=== PATIENT | female | born 1990 | race African-American/Black ===

== ENCOUNTER 2017-04-25 21:39 | Emergency (ER) | payer OTHER ==
[~2017-04-25] VITALS: Ht 172.7 cm; Wt 87.5 kg
[2017-04-25] MEDS ORDERED: NAPROSYN500 M1 ORAL (22:44)
--- NOTE | 2017-04-25 22:45 | Emergency Room Report ---
History of Present Illness General Chief Complaint: Lower Extremity Injury Source: Patient Present Illness HPI Is a 26-year-old female with no past medical history. She presents with chief complaint of bilateral knee pain. Worse when she walks or when she tried to get up. She felt pressure in that area. No trauma. No pain with sitting. She had x-ray done at [facility] and told everything was normal. Told that she may need an MRI Allergies: Coded Allergies: SULFA (SULFONAMIDE ANTIBIOTICS) (Verified Allergy, Unknown, 04/25/17) Patient History Past Medical History: see triage record, old chart reviewed Past Surgical History: none Pertinent Family History: none Social History: Denies: smoking Last Menstrual Period: 04/13/17 Now: No Immunizations: other Reviewed Nursing Documentation: PMH: Agreed, PSxH: Agreed Nursing Documentation-PMH Past Medical History: No Stated History Review of Systems Eye: Denies: eye pain, blurred vision ENT: Denies: ear pain, nose congestion, throat swelling Respiratory: Denies: cough, shortness of breath Cardiovascular: Denies: chest pain, palpitations Gastrointestinal: Denies: abdominal pain, diarrhea, nausea, vomiting Musculoskeletal: Reports: joint pain, Denies: back pain Skin: Denies: rash Neurological: Denies: headache, numbness Endocrine: Denies: increased thirst, increased urine Hematologic/Lymphatic: Denies: easy bruising All Other Systems: negative except mentioned in HPI Physical Exam Vital Signs Date Time Temp Pulse Resp B/P (MAP) Pulse Ox O2 Delivery O2 Flow Rate FiO2 04/25/17 22:07 98.1 82 16 121/65 99 Room Air vitals normal Sp02 EP Interpretation: reviewed, normal General Appearance: well appearing, no apparent distress, alert Head: normocephalic, atraumatic Eyes: bilateral eye PERRL, bilateral eye EOMI ENT: hearing grossly normal, normal pharynx Neck: full range of motion, supple, no meningismus Respiratory: chest non-tender, lungs clear, normal breath sounds Cardiovascular #1: regular rate, rhythm, no murmur Gastrointestinal: normal bowel sounds, non tender, no mass, no organomegaly, no bruit, non-distended Musculoskeletal: back normal, gait/station normal, normal range of motion Psychiatric: mood/affect normal Skin: warm/dry Medical Decision Making Diagnostic Impression: Primary Impression: Arthralgia of both knees ER Course Patient presents with bilateral knee pain. No trauma. No effusion on exam. No other of septic joint. I suspect this may be strained from her weight and maybe the carrying angle of her hip. Last Vital Signs Date Time Temp Pulse Resp B/P (MAP) Pulse Ox O2 Delivery O2 Flow Rate FiO2 04/25/17 22:07 98.1 82 16 121/65 99 Room Air Status: unchanged Disposition: HOME, SELF-CARE Condition: Stable Scripts Naproxen* (NAPROSYN*) 500 Mg Tablet 500 MG ORAL TWICE A DAY, #60 TAB Prov: MAURICIO PABON M.D. 04/25/17 Referrals: SOFI LOPEZ,REFERRING (PCP) Additional Instructions: followup with your DrRandolph in 7 days. You may need physical therapy. Return if worse. MAURICIO PABON M.D. Apr 25, 2017 22:45
[2017-04-25 22:50] VITALS: BP 121/65
== END 2017-04-25 22:50 | disposition home or self-care (01) ==
LOC: EMR 22:15
DX: M25.562 Pain in left knee (principal); M25.561 Pain in right knee; Z88.2 Allergy status to sulfonamides
CPT/HCPCS: 99283

== ENCOUNTER 2018-10-15 22:33 | Emergency (ER) | payer MEDICAID, OTHER ==
[~2018-10-15] VITALS: Ht 172.7 cm; Wt 95.3 kg
[~2018-10-15 22:33] MED LIST: NAPROSYN500 M1 ORAL
[2018-10-15] MEDS ORDERED: NKM (22:43)
[2018-10-15] MEDS ORDERED: NAPROXEN500 M2 ORAL (22:59)
[2018-10-15 23:00] VITALS: BP 121/84
--- NOTE | 2018-10-15 23:00 | Emergency Room Report ---
History of Present Illness General Chief Complaint: Pain Source: Patient Present Illness HPI HPI: 27-year-old otherwise healthy female presents for evaluation of her right upper arm pain. Symptoms been present for approximately 3 weeks. She notes it started shortly after lifting a heavy table at work. Pain is localized over the right bicep and does not radiate. He denies any pain in the shoulder or elbow joint or in the forearm, wrist or hand. Denies any paresthesias or loss of sensation. Cannot recall a specific injury. Has not taken any medication prior to arrival or since onset of symptoms. She has full use of the right upper extremity aside from mild limitation on elbow flexion secondary to discomfort. She is otherwise in her usual state of health and denies any recent illness, fever, chills, sore throat, chest pain, difficulty breathing, abdominal pain, vomiting or diarrhea, rash, dysuria at this time PMH: Denies PSH: Denies Allergies: Sulfa allergy Social Hx: Social alcohol use, denies drug or tobacco use Allergies: Coded Allergies: SULFA (SULFONAMIDE ANTIBIOTICS) (Verified Allergy, Unknown, 04/25/17) Patient History Last Menstrual Period: september Now: No Review of Systems All Other Systems: negative except mentioned in HPI Physical Exam Vital Signs Date Time Temp Pulse Resp B/P (MAP) Pulse Ox O2 Delivery O2 Flow Rate FiO2 10/15/18 22:39 98.4 80 16 121/84 (96) 98 Room Air General: Awake and alert, no acute distress HEENT: NC/AT. EOMI. Neck: Supple, trachea midline Chest Wall: No tenderness, no deformity Cardiovascular: RRR. S1 and S2 normal. No murmur appreciated Resp: Normal work of breathing. Skin: Intact. No abrasions, laceration or rash over the exposed skin MSK: Normal tone and bulk. Moving all extremities. No obvious deformity. Tenderness to palpation over the anterior and medial aspect of the right biceps. There is no significant tenderness or deformity in the shoulder, elbow , wrist or hand. There is full range of motion in all digits of the hand, or flexion extension and deviation of the wrist. Neuro: Awake and alert. Mentating appropriately. Sensation is intact over the dermatomes of the upper extremities bilaterally. Back/Spine: No midline tenderness in the cervical, thoracic or lumbosacral spine. Medical Decision Making Diagnostic Impression: Primary Impression: Biceps strain ER Course 27-year-old otherwise healthy female presenting for 3 weeks right upper arm pain. Her symptoms appear to be musculoskeletal in nature given its reproducibility and tenderness to palpation. There is no deformity or apparent injury in the elbow or shoulder joint I do not believe she requires imaging at this time. This likely a muscular strain sustained while lifting a desk 3 weeks ago. She will be put in a splint for comfort and discharged home with NSAIDs. I excised her not to participate in any heavy lifting or strenuous exercise until her symptoms are improved and to follow-up with her PMD. List of clinics in the area have also been provided in your discharge paperwork. She understands and agrees with the treatment plan will be discharged home. Please note that this report is being documented using AppSame technology. This can lead to erroneous entry secondary to incorrect interpretation by the dictating instrument. Last Vital Signs Date Time Temp Pulse Resp B/P (MAP) Pulse Ox O2 Delivery O2 Flow Rate FiO2 10/15/18 22:39 98.4 80 16 121/84 (96) 98 Room Air Disposition: HOME, SELF-CARE Condition: Stable Scripts Naproxen* (NAPROXEN*) 500 Mg Tablet 500 MG ORAL TWICE A DAY for 7 Days, #14 TAB Prov: Lane Larkin MD 10/15/18 Referrals: [facility] Patient Instructions: Muscle Strain, [id number] Additional Instructions: You were evaluated in the emergency department for pain in the right arm. This is likely a muscular strain which should improve in the next week. We will start you on anti-inflammatory/pain medication twice daily. You may use the sling provided for comfort as needed. Do not lift any weight greater than 5 pounds with the right arm until your symptoms are fully resolved. If your symptoms do not improve in the next week or if you develop inability to move the arm, pain in the joints loss of feeling return to the emergency department for reevaluation. Otherwise, follow-up with your primary doctor as needed Lane Larkin MD Oct 15, 2018 23:00
--- NOTE | 2018-10-15 23:00 | NUR ---
ER DISCHARGE NOTE: Patient is cleared to be discharged per ERMD, pt is aox4, on room air, with stable vital signs. pt was given dc and prescription instructions, pt was able to verbalize understanding, pt id band removed without complications. pt is able to ambulate with steady gait. pt took all belongings. pt given arm sling, return demonstrates proper use also given work note.
== END 2018-10-15 23:10 | disposition home or self-care (01) ==
LOC: EMR 23:09
DX: S46.211A Strain of muscle, fascia and tendon of other parts of biceps, right arm, initial encounter (principal); X50.0XXA Overexertion from strenuous movement or load, initial encounter; Y92.89 Other specified places as the place of occurrence of the external cause; Z88.2 Allergy status to sulfonamides
CPT/HCPCS: 99282

== ENCOUNTER 2018-10-19 22:18 | Emergency (ER) | payer MEDICAID ==
[~2018-10-19] VITALS: Ht 172.7 cm; Wt 95.3 kg
[~2018-10-19 22:18] MED LIST changes: +NAPROXEN500 M2 ORAL; +NKM
[2018-10-19] MEDS ORDERED: HYDROCODON-ACE1 EA15 ORAL (22:36)
--- NOTE | 2018-10-19 22:36 | Emergency Room Report ---
History of Present Illness General Chief Complaint: Pain Source: Patient Present Illness HPI Is a 27-year-old female who is right-hand dominant. She presents with chief complaint right arm pain. Her injury occurred at work about 2 weeks ago. She was lifting and pushing things and felt pain. It did not get any better. She was seen here on the first and was diagnosed with a biceps strain. Initially she had pain over the bicep area but now mostly the pain is in the tricep area. Worse with movement. Ibuprofen not helping. She was referral to a Workmen's Comp. doctor but has not follow-up yet. Denies any other complaint. Pain is 8 out of 10. Worse with movement and lifting. Better with rest. She is currently in a sling. Allergies: Coded Allergies: SULFA (SULFONAMIDE ANTIBIOTICS) (Verified Allergy, Unknown, 04/25/17) Patient History Past Medical History: see triage record, old chart reviewed Past Surgical History: none Pertinent Family History: none Social History: Denies: smoking Last Menstrual Period: 09/20 Now: No Immunizations: other Reviewed Nursing Documentation: PMH: Agreed; PSxH: Agreed Review of Systems Eye: Denies: eye pain, blurred vision ENT: Denies: ear pain, nose congestion, throat swelling Respiratory: Denies: cough, shortness of breath Cardiovascular: Denies: chest pain, palpitations Gastrointestinal: Denies: abdominal pain, diarrhea, nausea, vomiting Musculoskeletal: Reports: joint pain, muscle pain; Denies: back pain Skin: Denies: rash Neurological: Denies: headache, numbness Endocrine: Denies: increased thirst, increased urine Hematologic/Lymphatic: Denies: easy bruising All Other Systems: negative except mentioned in HPI Physical Exam Vital Signs Date Time Temp Pulse Resp B/P (MAP) Pulse Ox O2 Delivery O2 Flow Rate FiO2 10/19/18 22:21 98.2 72 16 117/75 (89) 95 Room Air Vitals normal Sp02 EP Interpretation: reviewed, normal General Appearance: well appearing, no apparent distress, alert Head: normocephalic, atraumatic Eyes: bilateral eye PERRL, bilateral eye EOMI ENT: hearing grossly normal, normal pharynx Neck: full range of motion, supple, no meningismus Respiratory: chest non-tender, lungs clear, normal breath sounds Cardiovascular #1: regular rate, rhythm, no murmur Gastrointestinal: normal bowel sounds, non tender, no mass, no organomegaly, no bruit, non-distended Musculoskeletal: back normal, gait/station normal, normal range of motion, other - Right arm: She has tenderness over the proximal tricep area. No swelling. No redness. No warmth. Full range of motion of the shoulder and elbow. Does elicit pain with abduction. Psychiatric: mood/affect normal Medical Decision Making Diagnostic Impression: Primary Impression: Muscle strain of right upper arm Qualified Codes: S46.911D - Strain of unspecified muscle, fascia and tendon at shoulder and upper arm level, right arm, subsequent encounter ER Course Patient presents with muscle strain. No evidence of septic joint. No evidence of full muscle tear. No evidence of infection. Will discharge home. Last Vital Signs Date Time Temp Pulse Resp B/P (MAP) Pulse Ox O2 Delivery O2 Flow Rate FiO2 10/19/18 22:21 98.2 72 16 117/75 (89) 95 Room Air Status: unchanged Disposition: HOME, SELF-CARE Condition: Stable Scripts Hydrocodone/Acetaminophen 5-325* (HYDROCODONE/ACETAMINOPHEN 5-325*) 1 Each Tablet 1 TAB ORAL Q6H PRN for For Pain, #20 TAB 0 Refills Prov: Gonzalo Magana MD 10/19/18 Additional Instructions: Follow-up with Workmen's Comp. doctor as scheduled. Return if symptoms worsen. Gonzalo Magana MD Oct 19, 2018 22:36
[2018-10-19 22:45] VITALS: BP 117/75
[2018-10-19] MEDS ORDERED: HYDROcodone/Acetamin 5/325 tab ORAL ONE (22:45)
--- NOTE | 2018-10-19 22:45 | NUR ---
ER DISCHARGE NOTE: Patient is cleared to be discharged per ERMD, pt is aox4, on room air, with stable vital signs. pt was given dc and prescription instructions, pt was able to verbalize understanding, pt id band removed without complications. pt is able to ambulate with steady gait. pt took all belongings. PT HERE FOR PRESCRIPTION FOR PAIN MEDS, 1 PILL GIVEN AND PRESCRIPTION AND PT D/C.
== END 2018-10-19 22:45 | disposition home or self-care (01) ==
LOC: EMR 22:25
DX: S46.911A Strain of unspecified muscle, fascia and tendon at shoulder and upper arm level, right arm, initial encounter (principal); Z88.2 Allergy status to sulfonamides; X50.9XXA Other and unspecified overexertion or strenuous movements or postures, initial encounter; Y92.9 Unspecified place or not applicable; Y99.0 Civilian activity done for income or pay
CPT/HCPCS: 99282

== ENCOUNTER 2019-05-25 22:33 | Emergency (ER) | payer SELFPAY ==
[~2019-05-25] VITALS: Ht 175.3 cm; Wt 99.8 kg
[~2019-05-25 22:33] MED LIST changes: +HYDROCODON-ACE1 EA15 ORAL
--- NOTE | 2019-05-25 23:21 | NUR ---
ED Nurse Note: Patient walked in from home accompanied by significant other d/t stubbed right pinky toe on wooden frame, pain 9/10. Patient aao x 4 and ambulatory with unsteady gait. No acute distress noted.
--- NOTE | 2019-05-25 23:25 | NUR ---
ED Nurse Note: ERMD at bedside.
[2019-05-25] MEDS ORDERED: HYDROcodone/Acetamin 5/325 tab ORAL ONE (23:30)
--- NOTE | 2019-05-25 23:33 | NUR ---
ED Nurse Note: Xray at bedside.
--- NOTE | 2019-05-25 23:47 | NUR ---
ED Nurse Note: ERMD at bedside.
[2019-05-26] MEDS ORDERED: IBUPROFEN600 MG ORAL (00:15)
[2019-05-26] MEDS ORDERED: HYDROCODON-ACE1 EA15 ORAL (00:15)
--- NOTE | 2019-05-26 00:15 | Emergency Room Report ---
History of Present Illness General Chief Complaint: Lower Extremity Injury Source: Patient Present Illness HPI This is a 28-year-old female with no past medical history. She presents with chief complaint of right fifth toe pain. She actually kicked her bed. This occurred just prior to arrival. She complained of pain to the right fifth toe. No other injury. Pain is 8 out of 10. Worse with walking. Better with rest. Allergies: Coded Allergies: SULFA (SULFONAMIDE ANTIBIOTICS) (Verified Allergy, Unknown, 04/25/17) Patient History Past Medical History: see triage record, old chart reviewed Past Surgical History: none Pertinent Family History: none Social History: Denies: smoking Last Menstrual Period: 05/13/19 Now: No Immunizations: other Reviewed Nursing Documentation: PMH: Agreed; PSxH: Agreed Nursing Documentation-PMH Past Medical History: No History, Except For Review of Systems Eye: Denies: eye pain, blurred vision ENT: Denies: ear pain, nose congestion, throat swelling Respiratory: Denies: cough, shortness of breath Cardiovascular: Denies: chest pain, palpitations Gastrointestinal: Denies: abdominal pain, diarrhea, nausea, vomiting Musculoskeletal: Reports: joint pain; Denies: back pain Skin: Denies: rash Neurological: Denies: headache, numbness Endocrine: Denies: increased thirst, increased urine Hematologic/Lymphatic: Denies: easy bruising All Other Systems: negative except mentioned in HPI Physical Exam Vital Signs Date Time Temp Pulse Resp B/P (MAP) Pulse Ox O2 Delivery O2 Flow Rate FiO2 05/25/19 22:36 98.8 88 16 127/68 (87) 99 Room Air Vitals normal Sp02 EP Interpretation: reviewed, normal General Appearance: well appearing, no apparent distress, alert Head: normocephalic, atraumatic Eyes: bilateral eye PERRL, bilateral eye EOMI ENT: hearing grossly normal, normal pharynx Neck: full range of motion, supple, no meningismus Respiratory: chest non-tender, lungs clear, normal breath sounds Cardiovascular #1: regular rate, rhythm, no murmur Gastrointestinal: normal bowel sounds, non tender, no mass, no organomegaly, no bruit, non-distended Musculoskeletal: back normal, normal range of motion, gait/station normal, other - Right foot: She has tenderness to the proximal phalanx of the fifth toe. No deformity. Psychiatric: mood/affect normal Procedures Splinting Splinting : Consent: Verbal Location: rt 5th toe Pre-Made Type: Alvin taping Pre-Proc Neuro Vasc Exam: normal Post-Proc Neuro Vasc Exam: normal Patient Tolerated: Well Complications: None Medical Decision Making Diagnostic Impression: Primary Impression: Toe fracture, right Qualified Codes: S92.521A - Displaced fracture of middle phalanx of right lesser toe(s), initial encounter for closed fracture ER Course Patient presents with a toe fracture. No dislocation. Will discharge home. Other X-Ray Diagnostic Results Other X-Ray Diagnostic Results : X-Ray ordered: Right toe x-rays # of Views/Limited Vs Complete: 3 View Indication: Pain EP Interpretation: Yes Interpretation: no dislocation, no soft tissue swelling, other - Displaced middle phalanx fracture fifth toe Impression: Other - toe frx Electronically Signed by: Gonzalo Magana MD Last Vital Signs Date Time Temp Pulse Resp B/P (MAP) Pulse Ox O2 Delivery O2 Flow Rate FiO2 05/26/19 00:00 98.7 05/25/19 22:36 88 16 127/68 (87) 99 Room Air Status: improved Disposition: HOME, SELF-CARE Condition: Stable Scripts Ibuprofen* (MOTRIN*) 600 Mg Tablet 600 MG ORAL THREE TIMES A DAY, #30 TAB 0 Refills Prov: Gonzalo Magana MD 05/26/19 Hydrocodone/Acetaminophen 5-325* (HYDROCODONE/ACETAMINOPHEN 5-325*) 1 Each Tablet 1 TAB ORAL Q6H PRN for For Pain, #15 TAB 0 Refills Prov: Gonzalo Magana MD 05/26/19 Referrals: NOT CHOSEN [facility]/,REFERRING (PCP) Additional Instructions: Elevate foot. Ice pack to the area. Follow-up with your doctor in 7 days for recheck. Return if worse. Gonzalo Magana MD May 26, 2019 00:15
[2019-05-26 00:20] VITALS: BP 127/68
--- NOTE | 2019-05-26 00:20 | NUR ---
ER DISCHARGE NOTE: Patient is cleared to be discharged per ERMD, pt is aox4, on room air, with stable vital signs. pt was given dc and prescription instructions, pt was able to verbalize understanding, pt id band removed. pt is able to ambulate with steady gait. pt took all belongings.
--- NOTE | 2019-05-26 15:06 | Diagnostic Imaging Report ---
Indication: Pain, trauma Technique: 3 views of the right fifth toe Comparison: none Findings: The middle phalanx is subluxed laterally by about one half bone width on the proximal phalanx. There is widening of the medial joint space. A well-corticated osseous fragment appears to be superimposed within the widened medial joint. No definite acute fractures. The remaining joint spaces are preserved Impression: Lateral subluxation of the fifth proximal interphalangeal joint with widening of the medial joint space. Osseous fragment within the widened joint space may represent an acute fracture fragment, given clinical presentation and other findings, although well-corticated appearance is not typical for such. This agrees with the preliminary interpretation reported by the emergency room physician in the electronic medical record
== END 2019-05-26 00:20 | disposition home or self-care (01) ==
LOC: EMR 23:21
DX: S92.521A Displaced fracture of middle phalanx of right lesser toe(s), initial encounter for closed fracture (principal); W22.8XXA Striking against or struck by other objects, initial encounter; Y92.9 Unspecified place or not applicable; Z88.2 Allergy status to sulfonamides
CPT/HCPCS: 99283

== ENCOUNTER 2019-05-26 20:10 | Emergency (ER) | payer SELFPAY ==
[~2019-05-26] VITALS: Ht 175.3 cm; Wt 99.8 kg
[~2019-05-26 20:10] MED LIST changes: +IBUPROFEN600 MG ORAL
--- NOTE | 2019-05-26 20:15 | NUR ---
ED Nurse Note: Pt ambulated into ED from home requesting a boot. Pt stated that she was seen here last night but was only given an kathryn wrap which proved to be insufficient support and requested a boot. Awaiting ERPA.
--- NOTE | 2019-05-26 20:28 | NUR ---
ED Nurse Note: ERPA at bedside
--- NOTE | 2019-05-26 20:31 | NUR ---
ED Nurse Note: post op shoe applied.
--- NOTE | 2019-05-26 20:33 | Emergency Room Report ---
History of Present Illness General Chief Complaint: Lower Extremity Injury Source: Patient Present Illness HPI 28-year-old female with no symptom past medical history here requesting a boot for her toe fracture. Patient was seen at [facility] last night and was diagnosed with right toe fracture and was provided with gordo tape and Michele bandage. Has not yet seen sports specialist. Patient has full range of motion of the toes. Denies any tingling or numbness. Denies any new injury. Is taking her medication. Allergies: Coded Allergies: SULFA (SULFONAMIDE ANTIBIOTICS) (Verified Allergy, Unknown, 04/25/17) Patient History Past Medical History: see triage record Past Surgical History: none Pertinent Family History: none Last Menstrual Period: 05/14/19 Now: No Immunizations: UTD Reviewed Nursing Documentation: PMH: Agreed; PSxH: Agreed Nursing Documentation-PMH Past Medical History: No History, Except For Hx Cardiac Problems: No - migraine, Hx Hypertension: No Hx Pacemaker: No Hx Asthma: No Hx COPD: No Hx Diabetes: No Hx Cancer: No Hx Gastrointestinal Problems: No Hx Dialysis: No History Of Psychiatric Problem: No Hx Neurological Problems: No Hx Cerebrovascular Accident: No Hx Seizures: No Review of Systems All Other Systems: negative except mentioned in HPI Physical Exam Vital Signs Date Time Temp Pulse Resp B/P (MAP) Pulse Ox O2 Delivery O2 Flow Rate FiO2 05/26/19 20:15 98.2 75 16 119/76 (90) 98 Room Air Sp02 EP Interpretation: reviewed, normal General Appearance: no apparent distress, alert, GCS 15, non-toxic Head: normocephalic, atraumatic Eyes: bilateral eye normal inspection, bilateral eye PERRL ENT: hearing grossly normal, normal pharynx, no angioedema, normal voice Neck: full range of motion, supple/symm/no masses Respiratory: chest non-tender, lungs clear, normal breath sounds, no rhonchi, no wheezing, speaking full sentences Cardiovascular #1: regular rate, rhythm, no edema, no murmur, normal capillary refill Cardiovascular #2: 2+ dorsalis pedis (R), 2+ dorsalis pedis (L) Gastrointestinal: normal bowel sounds, non tender, soft, non-distended, no guarding, no rebound Rectal: deferred Musculoskeletal: back normal, digits/nails normal, no calf tenderness Neurologic: alert, motor strength/tone normal, oriented x3, sensory intact, responsive, speech normal Psychiatric: judgement/insight normal Skin: no rash Lymphatic: no adenopathy Medical Decision Making PA Attestation All my diagnosis and treatment plans were reviewed ad discussed with my supervising physician Dr. Borrero Diagnostic Impression: Primary Impression: Toe fracture, right ER Course 28-year-old female with no symptom past medical history here requesting a boot for her toe fracture. Patient was seen at [facility] last night and was diagnosed with right toe fracture and was provided with gordo tape and Michele bandage. Has not yet seen sports specialist. Patient has full range of motion of the toes. Denies any tingling or numbness. Denies any new injury. Is taking her medication. Ddx considered but are not limited to: Toe sprain versus strain versus fracture Vital signs: are WNL, pt. is afebrile H&PE are most consistent with: Second encounter toe fracture ORDERS: None ED INTERVENTIONS: Postoperative shoe DISCHARGE: At this time pt. is stable for d/c to home. Will provide printed patient care instructions, and any necessary prescriptions. Care plan and follow up instructions have been discussed with the patient prior to discharge. Last Vital Signs Date Time Temp Pulse Resp B/P (MAP) Pulse Ox O2 Delivery O2 Flow Rate FiO2 05/26/19 20:15 98.2 75 16 119/76 (90) 98 Room Air Disposition: HOME, SELF-CARE Condition: Stable Referrals: NON PHYSICIAN (PCP) Patient Instructions: Toe Fracture, [id number] Additional Instructions: Follow-up with sports specialist, take medication as directed, if worsening symptom return to the emergency room Fernanda Miles May 26, 2019 20:33
[2019-05-26 20:37] VITALS: BP 119/76
--- NOTE | 2019-05-26 20:38 | NUR ---
ER DISCHARGE NOTE: Patient is cleared to be discharged home per ERMD, pt is aox4, on room air, with stable vital signs. pt was given dc instructions, pt was able to verbalize understanding, pt id band removed. pt is able to ambulate with steady gait. pt took all belongings.
== END 2019-05-26 20:37 | disposition home or self-care (01) ==
LOC: EMR 20:28
DX: S92.521A Displaced fracture of middle phalanx of right lesser toe(s), initial encounter for closed fracture (principal); W22.8XXA Striking against or struck by other objects, initial encounter; Y92.9 Unspecified place or not applicable; Z88.2 Allergy status to sulfonamides
CPT/HCPCS: 99281

== ENCOUNTER 2019-08-07 08:46 | Emergency (ER) | payer MEDICAID ==
[~2019-08-07] VITALS: Ht 172.7 cm; Wt 90.7 kg
[2019-08-07 08:55] VITALS: BP 107/69
--- NOTE | 2019-08-07 08:55 | NUR ---
ED Nurse Note: Pt ambulated to ED from home d/t painful urination; itchiness x 3-4 weeks ago. per pt she's also 15 weeks . Pt is AOx4, calm and cooperative. Pt's VSS, afebrile on triage, on RA. Placed on room.
--- NOTE | 2019-08-07 09:03 | NUR ---
ED Nurse Note: ERMD at bedside.
--- NOTE | 2019-08-07 09:19 | NUR ---
ED Nurse Note: urine sent.
--- NOTE | 2019-08-07 09:30 | Emergency Room Report ---
History of Present Illness General Chief Complaint: Female Urogenital Problems Source: Patient Present Illness HPI 28-year-old female presents ED for urinary symptoms. States she is been having increased urination and dysuria for the last 3 days. states she is about 15 weeks . Denies fevers or chills. Denies nausea or vomiting. Denies flank pain. Denies bleeding. Denies any abdominal pain. No other aggravating relieving factors. Denies any other associated symptoms Allergies: Coded Allergies: SULFA (SULFONAMIDE ANTIBIOTICS) (Verified Allergy, Unknown, 04/25/17) COVID-19 Screening Contact w/high risk pt: No Recent Travel to affected area: No Experienced COVID-19 symptoms?: No COVID-19 Testing performed PRACTICE DIRECTOR: No Patient History Past Medical History: none Past Surgical History: none Pertinent Family History: none Social History: Denies: smoking, alcohol use, drug use Last Menstrual Period: 03/2019 Now: Yes - 15 weeks Immunizations: UTD Reviewed Nursing Documentation: PMH: Agreed; PSxH: Agreed Nursing Documentation-PMH Past Medical History: No Stated History Hx Cardiac Problems: No - migraine, Hx Hypertension: No Hx Pacemaker: No Hx Asthma: No Hx COPD: No Hx Diabetes: No Hx Cancer: No Hx Gastrointestinal Problems: No Hx Dialysis: No Hx Neurological Problems: No Hx Cerebrovascular Accident: No Hx Seizures: No Review of Systems All Other Systems: negative except mentioned in HPI Physical Exam Vital Signs Date Time Temp Pulse Resp B/P (MAP) Pulse Ox O2 Delivery O2 Flow Rate FiO2 08/07/19 08:51 98.2 85 19 107/69 (82) 95 Room Air Sp02 EP Interpretation: reviewed, normal General Appearance: no apparent distress, alert, GCS 15, non-toxic Head: normocephalic, atraumatic Eyes: bilateral eye normal inspection, bilateral eye PERRL ENT: hearing grossly normal, normal pharynx, no angioedema, normal voice Neck: full range of motion, supple/symm/no masses Respiratory: chest non-tender, lungs clear, normal breath sounds, speaking full sentences Cardiovascular #1: regular rate, rhythm, no edema Cardiovascular #2: 2+ carotid (R), 2+ carotid (L), 2+ radial (R), 2+ radial (L) , 2+ dorsalis pedis (R), 2+ dorsalis pedis (L) Gastrointestinal: normal bowel sounds, non tender, soft, non-distended, no guarding, no rebound Rectal: deferred Genitourinary: normal inspection, no CVA tenderness Musculoskeletal: back normal, normal range of motion, gait/station normal, non- tender Neurologic: alert, motor strength/tone normal, oriented x3, sensory intact, responsive, speech normal Psychiatric: judgement/insight normal, memory normal, mood/affect normal, no suicidal/homicidal ideation Reflexes: 3+ bicep (R), 3+ bicep (L), 3+ tricep (R), 3+ tricep (L), 3+ knee (R) , 3+ knee (L) Lymphatic: no adenopathy Medical Decision Making Diagnostic Impression: Primary Impression: Threatened Additional Impression: Urinary tract infection Qualified Codes: N39.0 - Urinary tract infection, site not specified ER Course Hospital Course 28-year-old female presents to ED complaining of dysuria. + . Differential diagnoses include: UTI, cystitis, pyelonephritis Clinical course Patient placed on stretcher. After initial history and physical I ordered UA, urine . UA + bacteria + blood. patient is I discussed findings with patient. Patient states that she may have some mild spotting. Will order ultrasound Ultrasound shows IUP approximately 16 weeks good heart rate. I discussed findings with patient. Safe for discharge with close outpatient follow-up. 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 I will provide ultrasound report. I will provide prescription for antibiotics Diagnosis - threatened , UTI Stable and discharged home with prescriptions for Rx macrobid. Instructed to followup with PMD/OB. Return to ED if symptoms recur or worsen Labs Test 08/07/19 09:08 Urine Color Pale yellow Urine Appearance Clear Urine pH 8 (4.5-8.0) Urine Specific [place] 1.010 (1.005-1.035) Urine Protein Negative (NEGATIVE) Urine Glucose (UA) Negative (NEGATIVE) Urine Ketones Negative (NEGATIVE) Urine Blood 2+ (NEGATIVE) Urine Nitrite Negative (NEGATIVE) Urine Bilirubin Negative (NEGATIVE) Urine Urobilinogen Normal MG/DL (0.0-1.0) Urine Leukocyte Esterase 3+ (NEGATIVE) Urine RBC 2-4 /HPF (0 - 2) Urine WBC 2-4 /HPF (0 - 2) Urine Squamous Epithelial Cells Few /LPF (NONE/OCC) Urine Bacteria Occasional /HPF (NONE) Urine HCG, Qualitative Positive (NEGATIVE) CT/MRI/US Diagnostic Results CT/MRI/US Diagnostic Results : Imaging Test Ordered: OB US Impression TECHNIQUE: Real-time transabdominal obstetrical ultrasound of the maternal pelvis and a first trimester with image documentation. COMPARISON: None FINDINGS: Single live intrauterine gestation. The placenta is posterior without evidence of previa. The amniotic fluid index is subjectively within normal limits. The cervix is long and closed, measuring 3.59 cm. Patient's LMP is reported as 04/15/2019 which corresponds to gestational age of 16 weeks 2 days giving OCHOA of 01/20/2020. BPD 3.36 cm 16 weeks 3 days HC 12.14 cm 16 weeks 0 days AC 11.35 cm 17 weeks 1 day FL 2.31 cm 17 weeks 0 days By this ultrasound, estimated gestational age is 16 weeks 4 days, corresponding to a sonographic OCHOA of 01/18/2020. Estimated weight is 175 g +/-26 g which is at the 84.13 percentile. HC/AC ratio is 1.07 (normal range for this fetus is 1.06-1.36). FHR is 142 bpm. Visualized anatomy is grossly unremarkable, but evaluation is limited by early gestational age. IMPRESSION: Single intrauterine with heart rate of 1 HX 42 bpm. No acute abnormality. Last Vital Signs Date Time Temp Pulse Resp B/P (MAP) Pulse Ox O2 Delivery O2 Flow Rate FiO2 08/07/19 08:55 98.2 19 107/69 95 Room Air 08/07/19 08:51 85 Status: improved Disposition: HOME, SELF-CARE Condition: Stable Scripts Nitrofurantoin Monohyd/M-Cryst* (MACROBID 100 MG*) 100 Mg Capsule 100 MG ORAL EVERY 12 HOURS for 7 Days, #14 CAP Prov: Richy Winters MD 08/07/19 Referrals: NON PHYSICIAN (PCP) Richy Winters MD August 07, 2019 09:30
[2019-08-07 09:41] LABS: APPEARANCE,URINE CLEAR; BILIRUBIN, URINE NEGATIVE (NEGATIVE); COLOR,URINE PALE YELLOW; GLUCOSE, URINE (UA) NEGATIVE (NEGATIVE); KETONES,URINE NEGATIVE (NEGATIVE); LEUKOCYTE ESTERASE ,URINE 3+ (NEGATIVE); NITRITE,URINE NEGATIVE (NEGATIVE); PH,URINE 8 (4.5-8.0); PROTEIN,URINE NEGATIVE (NEGATIVE); UROBILINOGEN,URINE NORMAL MG/DL (0.0-1.0)
--- NOTE | 2019-08-07 10:49 | Diagnostic Imaging Report ---
EXAM: US First Trimester , Transabdominal CLINICAL HISTORY: BLD TECHNIQUE: Real-time transabdominal obstetrical ultrasound of the maternal pelvis and a first trimester with image documentation. COMPARISON: None FINDINGS: Single live intrauterine gestation. The placenta is posterior without evidence of previa. The amniotic fluid index is subjectively within normal limits. The cervix is long and closed, measuring 3.59 cm. Patient's LMP is reported as 04/15/2019 which corresponds to gestational age of 16 weeks 2 days giving OCHOA of 01/20/2020. BPD 3.36 cm 16 weeks 3 days HC 12.14 cm 16 weeks 0 days AC 11.35 cm 17 weeks 1 day FL 2.31 cm 17 weeks 0 days By this ultrasound, estimated gestational age is 16 weeks 4 days, corresponding to a sonographic OCHOA of 01/18/2020. Estimated weight is 175 g +/-26 g which is at the 84.13 percentile. HC/AC ratio is 1.07 (normal range for this fetus is 1.06-1.36). FHR is 142 bpm. Visualized anatomy is grossly unremarkable, but evaluation is limited by early gestational age. IMPRESSION: Single intrauterine with heart rate of 1 HX 42 bpm. No acute abnormality.
[2019-08-07] MEDS ORDERED: NITROFURANTOIN100 M2 ORAL (11:16)
[2019-08-07 11:20] VITALS: BP 107/69
--- NOTE | 2019-08-07 11:21 | NUR ---
ED Nurse Note: Pt cleared by health care Provider for discharge. DC instructions/prescription was given and explained to pt and verbalized understanding of teachings. All medical deviecs such as ID band removed. Pt is AAO x4, ambulatory and left with all personal belongings.
== END 2019-08-07 11:22 | disposition home or self-care (01) ==
LOC: EMR 09:04
DX: O20.0 Threatened abortion (principal); Z3A.16 16 weeks gestation of pregnancy; O23.42 Unspecified infection of urinary tract in pregnancy, second trimester; Z88.2 Allergy status to sulfonamides
CPT/HCPCS: 76805; 76817; 81003; 81025; Z7502; 99284